=== PATIENT | male | born 1955 | race Caucasian/White ===

== ENCOUNTER 2022-07-17 08:20 | Emergency (ER) | payer BC, SELFPAY ==
[2022-07-17 08:27] VITALS: BP 146/71; PULSE 67; RESP 20; O2SAT 98; BMI 40.3
[2022-07-17 09:37] LABS: Basophils Percent Auto 0.3 % (0.0-3.0); Eosinophils Percent Auto 1.8 % (0.0-7.0); Hematocrit 32.4 % (37.0-53.0); Hemoglobin* 10.9 gm/dL (13.5-17.5); Immature Granulocytes Abs Auto 0.05 K/uL (0.00-0.30); Lymphocytes Percent Auto 13.7 % (20-44); Mean Corpuscular HGB Conc 34 gm/dL (32-36); Mean Corpuscular Hemoglobin 29 pg (26-34); Mean Corpuscular Volume 86 fL (80-100); Monocytes Percent Auto 10.5 % (0.0-11.0); Neutrophils Percent Auto 73.3 % (42.0-72.0); Platelet Count* 290 K/uL (140-440); RDW Coefficient of Variation % 14.2 % (11.5-15.5); Red Blood Count 3.77 m/uL (4.30-5.90); White Blood Count* 11.33 K/uL (4.50-11.00)
[2022-07-17 09:42] LABS: Chloride* 104 mmol/L (96-114); Slide Review Reflex No; Sodium* 136 mmol/L (135-149)
[2022-07-17 09:45] LABS: Creatinine* 1.7 mg/dL (0.5-1.5); Est. Creatinine Clearance* 53.14; Estimated Glomerular Filt Rate 44 ml/min
[2022-07-17 09:46] LABS: Blood Urea Nitrogen* 44 mg/dL (7-30); Calcium* 9.1 mg/dL (8.4-10.6); Carbon Dioxide* 25 mmol/L (20-32); Glucose* 191 mg/dL (60-115)
--- NOTE | 2022-07-17 10:27 | ED_ITS ---
HPI - General Adult General Date Seen: 07/17/22 Chief complaint: Skin/Abscess/Foreign Body Stated complaint: Possible cellulitis in RT hand Time Seen by Provider: 07/17/22 08:24 Source: patient Mode of arrival: ambulatory Limitations: no limitations History of Present Illness HPI narrative: Patient is a very nice 67-year-old gentleman who presents here with right hand discomfort, this is been progressive for the last couple days, he notices on Monday when he was doing a lot of work with his mouse, he does have a history of right hand pain I noted in his chart in the past, he has presented the ER they thought at this time 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 He does have type 2 diabetes, does not check his sugars. Is not on insulin. Denies any fevers chills or sweats but the pain in his right hand has become more and more extreme. He has been using some Tylenol for this he took 2 tablets yesterday of the 500 mg, but did not use any NSAIDs as he does have a hi story of borderline kidney function was told not to take these. He has noted no redness on his hand, he has not had any injury to his hand where were a portal of entry would be. Related Data Allergies Allergy/AdvReac Type Severity Reaction Status Date / Time MARCELL Inhibitors Allergy Verified 07/17/22 08:26 smallpox Allergy Verified 07/17/22 08:26 vaccine,chick-embryo,live Review of Systems Status of ROS: Reports: 10 or more systems reviewed and unremarkable except as noted in History and below PFSH PFS Social History Smoking Status: Former smoker What tobacco products do you use: cigarettes Years smoked: 20 Smoking quit date/years: >15 years ago Do you use any of these nicotine containing products: None Second hand tobacco smoke exposure: No How often do you have a drink containing alcohol: never How often do you have six or more drinks on one occasion: Never AUDIT-C Alcohol total score: 0 Non-prescribed substance use: denies use service: No Exam Narrative: Exam Narrative: On examination he is seen in room 4 he is in no apparent distress, any sort of extension of his right hand and fingers, causes him pain that radiates up his forearm. No real swelling is noted of his hand and there is no warmth associated with this, there is no redness, and I do not see an evidence of a portal of entry or swelling suggestive of infectious etiology. Cap refill is normal sensations normal his entire hand, he has normal movement of his elbow in flexion extension supination pronation and his elbow there is no adenopathy noted of his left axilla. Const: Vital Signs, click to edit/add: Vital Signs - 24 hr 07/17/22 08:27 Pulse Rate [Pulse Oximeter] 67 Respiratory Rate 20 Blood Pressure [Le ft Upper Arm] 146/71 H Pulse Oximetry 98 Oxygen Delivery Me thod Room Air Documenting provider has reviewed patient's vital signs: yes Course Course Hospital Course: I was able to speak to the orthopedic PA on-call for the clinic Arleen Paul , he will be seen tomorrow in follow-up, I put him in a volar splint, and slung him also. We will put him on some Augmentin, cover him even though I do not think that this is tenosynovitis, I think it is more likely a tendinitis or crystal arthropathy. Given the fact that he can not really take NSAIDs, given a prescription for some narcotic, to help him. Review of the [employer] did not show any prescriptions for listed substances. He is in agreement with this plan Post splinting, he had good cap refill good motion, and sensation was normal. Vital Signs Vital signs: Initial Vital Signs Temperature Source Temporal Artery Scan 07/17/22 08:27 Pulse Rate 67 07/17/22 08:27 Pulse Rhythm 07/17/22 08:27 Respiratory Rate 20 07/17/22 08:27 Blood Pressure 146/71 H 07/17/22 08:27 Blood Pressure Mean 96 07/17/22 08:27 Pulse Oximetry 98 07/17/22 08:27 Oxygen Delivery Method 07/17/22 08:27 Vital Signs Pulse Rate 67 07/17/22 08:27 Respiratory Rate 20 07/17/22 08:27 Blood Pressure 146/71 H 07/17/22 08:27 Pulse Oximetry 98 07/17/22 08:27 Oxygen Delivery Method 07/17/22 08:27 Pulse Rate 67 07/17/22 08:27 Respiratory Rate 20 07/17/22 08:27 Blood Pressure 146/71 H 10/30/22 08:27 Pulse Oximetry 98 07/17/22 08:27 Oxygen Delivery Method 07/17/22 08:27 Medical Decision Making MDM Narrative Medical decision making narrative: During this interaction I considered multiple diagnosis including tenosynovitis, tendinitis, radiculopathy, abscess, paronychia, ischemic limb, and another possibility Medical Records Medical records reviewed: Yes I reviewed the patient's medical records Lab Data Lab results reviewed: Yes I reviewed the patient's lab results Labs: Lab Results 07/17/22 07/17/22 Range/Units 09:20 09:20 WBC 11.33 H (4.50-11.00) K/uL RBC 3.77 L (4.30-5.90) m/uL Hgb 10.9 L (13.5-17.5) gm/dL Hct 32.4 L (37.0-53.0) % MCV 86 (80-100) fL MCH 29 (26-34) pg MCHC 34 (32-36) gm/dL RDW Coeff of Maddi 14.2 (11.5-15.5) % Plt Count 290 (140-440) K/uL Neut % (Auto) 73.3 H (42.0-72.0) % Lymph % (Auto) 13.7 L (20-44) % Blair % (Auto) 10.5 (0.0-11.0) % Eos % (Auto) 1.8 (0.0-7.0) % Baso % (Auto) 0.3 (0.0-3.0) % Neut # (Auto) 8.30 H (1.7-7.0) K/uL Lymph # (Auto) 1.60 (0.90-2.90) K/uL Blair # (Auto) 1.20 H (0.00-0.90) K/UL Eos # (Auto) 0.20 (0.00-0.50) K/uL Baso # (Auto) 0.00 (0.00-0.30) K/uL Abs Immat Gran (auto) 0.05 (0.00-0.30) K/uL Sodium 136 (135-149) mmol/L Potassium 5.0 (3.6-5.1) mmol/L Chloride 104 (96-114) mmol/L Carbon Dioxide 25 (20-32) mmol/L BUN 44 H (7-30) mg/dL Creatinine 1.7 H (0.5-1.5) mg/dL Estimated Creat Clear 53.14 Estimated GFR 44 ml/min Glucose 191 H (60-115) mg/dL Calcium 9.1 (8.4-10.6) mg/dL C-Reactive Protein 7.0 H (0.5-1.0) mg/dL Discharge Plan Discharge Clinical Impression: Tendinitis Patient Disposition: Home w/ Parent or Adult Condition: Improved Instructions: Tendinitis (ED) Additional Instructions: Home rest follow-up tomorrow with the orthopedics PA at 10:30 a.m.. Take the pain medication as needed, stool softeners with this as it can cause constipation. Put you on some antibiotics just to cover the bases here, but I would do not think that this is infectious related. I think more likely that it is either related to gout, or tendinitis. Follow up appointment is [facility] on [facility]18 with a 10:30am arrival time. [facility] [address] [place] [id number] Activity Level: No Restrictions Follow Up/Referrals: Nydia Paul PA-C [Physician Director Translational] - Bogdan Jacobsen MD [Primary Care Provider] - Stand Alone Forms: Easy Tempo Info Instructions
== END 2022-07-17 10:48 | disposition home or self-care (01) ==
PROVIDERS: Emergency Provider Family Medicine; PCP Family Medicine
DX: M77.8 Other enthesopathies, not elsewhere classified (principal)
CPT/HCPCS: 29125; 36415; 80048; 85025; 86140; 99283; 99284

== ENCOUNTER 2023-10-06 10:53 | Outpatient (CLI) | payer OTHER, SELFPAY | END 2023-10-06 10:54 | disposition home or self-care (01) | LOC: LKVREF 11:07 | PROVIDERS: PCP Family Medicine; Visit Provider Family Medicine | DX: M10.9 Gout, unspecified (principal) | CPT/HCPCS: 84550 ==

== ENCOUNTER 2024-10-22 09:30 | Outpatient (CLI) | payer OTHER, SELFPAY | END 2024-10-22 09:31 | disposition home or self-care (01) | PROVIDERS: PCP Family Medicine; Visit Provider Family Medicine | DX: I10 Essential (primary) hypertension (principal); E13.9 Other specified diabetes mellitus without complications; E78.2 Mixed hyperlipidemia; D64.9 Anemia, unspecified; E66.01 Morbid (severe) obesity due to excess calories; Z12.5 Encounter for screening for malignant neoplasm of prostate | CPT/HCPCS: 80048; 80061; 80076; G0103 ==